=== PATIENT | male | born 1975 | race Caucasian/White ===

== ENCOUNTER 2023-04-25 20:46 | Emergency (ER) | payer OTHER, SELFPAY ==
[2023-04-25 20:46] VITALS: BMI 21.8
[2023-04-25 20:48] VITALS: BP 122/90
[2023-04-25 21:08] LABS: % Basophils 0.3 % (0-2); % Eosinophils 0.3 % (0-6); % Immature Granulocytes 0.4 % (0-0.5); % Lymphocytes 19.3 % (20.5-51.1); % Monocytes 10.8 % (1.7-9.3); % Neutrophils 68.9 % (42.2-75.2); Absolute Immature Granulocytes 0.1 10^3/uL (0-0.05); Absolute Lymphocytes 2.3 10^3/uL (1.2-3.4); Absolute Monocytes 1.3 10^3/uL (0.1-0.6); Absolute Neutrophils 8.1 10^3/uL (1.4-6.5); Hemoglobin 12.9 g/dL (13.0-18.0); Mean Corp Hgb Conc. 35.8 g/dL (33.0-37.0); Mean Corpuscular Hgb 30.9 pg (27.0-31.0); Mean Corpuscular Volume 86.3 fL (80.0-94.0); Nucleated Red Blood Cells % 0 % (-); Platelet Count 347 10^3/uL (130-400); Red Blood Cell Count 4.17 10^6/uL (4.70-6.10); Red Cell Dist. Width 12.1 % (11.5-14.5); White Blood Cell Count 11.8 10^3/uL (4.8-10.8)
[2023-04-25 21:22] LABS: Blood Urea Nitrogen 19 mg/dl (9-20); Calcium 9.8 mg/dl (8.4-10.2); Carbon Dioxide 29 mmol/L (22-30); Chloride 99 mmol/L (98-107); Glucose 105 mg/dl (70-99); Potassium 4.1 mmol/L (3.5-5.1); Sodium 135 mmol/L (135-145); eGFR > 60.00
[2023-04-25 21:23] LABS: Alcohol None Detected
--- NOTE | 2023-04-25 22:18 | ED.GENMED ---
History of Present Illness
General
Chief Complaint: Crisis Evaluation
Source: patient
Exam Limitations: none
Time Seen by Provider: 04/25/23 21:29
Nursing documentation reviewed up to this point in time: agreed with
Travel History
Have you had any contact with someone who has COVID-19?: No
Do you have any symptoms of coronavirus? Fever > 100 degrees, chills, cough, shortness of breath, sore throat, loss of taste or smell, muscle aches, or headache?: No
History of Present Illness
History of Present Illness:
Patient to ED for medical clearance for inpatient psychiatric care. Alert and cooperative. He states he has been feeling suicidal, has a plan. States he will inject something or hang himself. Denies taking anything prior to arrival here.
Past History
Past History
ED Past Medical History: HTN, Hypercholesterolemia and Psychiatric (Substance abuse, anxiety, depression)
ED Past Surgical History: Brain (hemorrhage 2022), Tonsilectomy and Other
Social History
Tobacco: Smoker
Alcohol: Occasional
Drug: IVDA
Personal: Single
Living: homeless
Employment: Not employed
Family History
Family History: Other (Noncontributory)
Review of Systems
Review of Systems
Allergies reviewed?: Yes
All Other Systems: ROS reviewed and negative except as documented in HPI and ROS
Constitutional: Reports no symptoms
EENT: Reports no symptoms
Respiratory: Reports no symptoms
Cardiac: Reports no symptoms
ABD/GI: Reports no symptoms
: Reports no symptoms
Musculoskeletal: Reports other (left wrist cast )
Skin: Reports no symptoms
Neurological: Reports no symptoms
Psychiatric: Reports depression and suicidal
Phy Exam
General Physical Exam
General Presentation: well appearing and no apparent distress
General age: appears stated age
General Skin: warm and dry
General Habitus: normal
General Mental: alert
General Hydration: appears well hydrated
Cardiovascular Exam
Cardiovascular Exam: regular rate/rhythm and no edema
Pulmonary Exam
Pulmonary Exam: lungs clear, no respiratory distress and chest non tender
Gastrointestinal Exam
Gastrointestinal Exam: normal bowel sounds, non tender, soft, no organomegaly, non distended and no cva tenderness
Neurological Exam
Neurological Exam: alert, oriented x3, CN II-XII intact, no motor deficits, no sensory deficits, speech normal and normal gait
Musculoskeletal Exam
Musculoskeletal Exam: neuro vasc intact and other (cast right wrist.)
Skin Exam
Skin Exam: normal color, warm/dry and no rash
Psychiatric Exam
Psychiatric Exam: depressed and suicidal
Course
Orders/Labs/Results
Orders:
Orders
04/25/23 21:01
Acetaminophen Urgent
Comment: ADD ON
Alcohol Urgent
Basic Metabolic Panel Urgent
Complete Blood Count/With Diff Urgent
Salicylate Urgent
Comment: ADD ON
04/25/23 21:42
Add On- LAB Urgent
Tests Added?: Tylenol, Salicylate
04/25/23 22:20
Fentanyl, Urine Urgent
Urine Drug Abuse Screen Urgent
Date Specimen was Collected: 04/25/23
Time Specimen was Collected: 20:51
Abnormal Lab Results
04/25/23 04/25/23
21:01 22:20
WBC 11.8 H 10^3/uL
(4.8-10.8)
RBC 4.17 L 10^6/uL
(4.70-6.10)
Hgb 12.9 L g/dL
(13.0-18.0)
Hct 36.0 L %
(39.0-52.0)
Abs Immat Gran (auto) 0.1 H 10^3/uL
(0-0.05)
Absolute Neuts (auto) 8.1 H 10^3/uL
(1.4-6.5)
Absolute Monos (auto) 1.3 H 10^3/uL
(0.1-0.6)
Lymphocytes % 19.3 L %
(20.5-51.1)
Monocytes % 10.8 H %
(1.7-9.3)
Glucose 105 H mg/dl
(70-99)
Ur Buprenorphine Positive H
(Negative)
Ur Tricyclics Screen Positive H
(Negative)
U Benzodiazepines Scrn Positive H
(Negative)
04/25/23 21:01
04/25/23 21:01
Vital Signs
Initial and Last Documented VS:
Initial Vital Signs
Temp Pulse Resp BP Pulse Ox
98.4 F 96 18 122/90 99
04/25/23 20:48 04/25/23 20:48 04/25/23 20:48 04/25/23 20:48 04/25/23 20:48
Last Documented Vital Signs
Temp Pulse Resp BP Pulse Ox
98.4 F 96 18 122/90 99
04/25/23 20:48 04/25/23 20:48 04/25/23 20:48 04/25/23 20:48 04/25/23 20:48
*Critical Care Note
Total Time (30-74mins, 75-104mins- exclusive of procedures): Not Applicable
Update Note
Update Note:
Alfred Levy is medically cleared for inpatient psychiatric admission
ED Attending Note
-
Portions of this chart may have been created with voice recognition software.� Occasional wrong word or��sound alike� substitutions may have occurred due to the inherent limitations of voice recognition software.
Discharge Plan
Departure
Patient Disposition: [facility]
Date of Disposition: 04/25/23
Time of Disposition: 22:25
Patient Status:: Crisis
Condition: Fair
Covid-19: Not Applicable
Discharge Problem:
Medical clearance for psychiatric admission
Prescriptions:
No Action
simvastatin 10 MG tablet
10 mg PO HS
clonazepam 1 MG tablet
1 mg PO BID
gabapentin [Neurontin] 800 MG tablet
800 mg PO TID
paroxetine HCl 20 MG tablet
40 mg PO HS
diphenhydramine HCl [Banophen] 25 MG capsule
25 mg PO DAILYPRN PRN (Reason: allergies)
ibuprofen 200 MG tablet
600 mg PO Q6HPRN PRN (Reason: mild pain fever)
lisinopril [Zestril] 30 MG tablet
30 mg PO HS
Seroquel:
300 mg PO HS
Suboxone 4 mg-1 mg Sl Film
1 film sublingual DAILY
Referrals:
UNKNOWN - PT NOT,INTERVIEWE [Family Provider] -
Interventions
Interventions:
*Risk Screen - Suicide Last Done: 04/25/23 23:03
*General Assessment Last Done: 04/25/23 20:48
*Neglect/Abuse Screening Last Done: 04/25/23 20:48
ED- Fall Risk Assessment Last Done: 04/25/23 23:03
*ED COVID-19 Vaccine History Last Done: 04/25/23 20:48
*Nursing Disposition Last Done: 04/25/23 23:03
ED-Psychological Assessment Last Done: 04/25/23 21:24
Discharge Date and Time
Discharge Date/Time: 04/25/23 23:09
[2023-04-25 22:38] LABS: Amphetamines Negative (Negative); Barbiturates Negative (Negative); Benzodiazepines Positive (Negative); Buprenorphine Positive (Negative); Cocaine Negative (Negative); Methadone Negative (Negative); Methamphetamines Negative (Negative); Opiates Negative (Negative)
[2023-04-25 22:39] LABS: Marijuana Negative (Negative); Phencyclidine Negative (Negative); Tricyclic Antidepressants Positive (Negative)
[2023-04-25 23:34] LABS: Fentanyl, Urine Negative (Negative)
[2023-04-26 00:04] LABS: Acetaminophen < 10 ug/ml (10-30); Salicylate < 1.0 mg/dl (2.0-20.0)
== END 2023-04-25 23:09 ==
LOC: EMR 20:46
PROVIDERS: EMERGENCY PHYSICIAN Emergency Medicine
DX: Z13.30 Encounter for screening examination for mental health and behavioral disorders, unspecified (principal); R45.851 Suicidal ideations; I10 Essential (primary) hypertension; E78.00 Pure hypercholesterolemia, unspecified; F19.10 Other psychoactive substance abuse, uncomplicated; F41.9 Anxiety disorder, unspecified; F32.A Depression, unspecified; F17.200 Nicotine dependence, unspecified, uncomplicated; Z86.73 Personal history of transient ischemic attack (TIA), and cerebral infarction without residual deficits
CPT/HCPCS: 99283; 80048; 80143; 80179; 80306; 80307; 82077; 85025

== ENCOUNTER 2024-04-03 16:10 | Emergency (ER) | payer SELFPAY ==
[2024-04-03 16:16] VITALS: BP 166/115
--- NOTE | 2024-04-03 16:30 | ED.GENMED ---
History of Present Illness
General
Chief Complaint: Crisis Evaluation
Source: patient and records
Exam Limitations: none
Time Seen by Provider: 04/03/24 16:25
Nursing documentation reviewed up to this point in time: agreed with
History of Present Illness
History of Present Illness:
48-year-old male with a past medical history of hypertension, hyperlipidemia, polysubstance use, anxiety and depression who presents to the ER for evaluation of suicidality, hallucinations and bizarre behavior. Patient is exhibiting very bizarre
behavior here. He clearly appears to be paranoid. He says 'I just need to talk to a friend and work something out.' He is very vague about this. He does admit that he has been suicidal. He vaguely references satellites and hearing things. I
was not able to contact his mother to obtain any collateral history. He denies any drug or alcohol use to me. He denies any other complaints. He says that he is supposed to be on medication including Seroquel, paroxetine, Klonopin and he says he
has been compliant without missed doses. He denies any physical complaints.
Past History
Past History
ED Past Medical History: HTN, Hypercholesterolemia and Psychiatric (Substance abuse, anxiety, depression)
ED Past Surgical History: Brain (hemorrhage 2022), Tonsilectomy and Other
Social History
Tobacco: Smoker
Alcohol: Occasional
Drug: IVDA
Personal: Single
Living: homeless
Employment: Not employed
Family History
Family History: Other (Noncontributory)
Review of Systems
Review of Systems
All Other Systems: ROS reviewed and negative except as documented in HPI and ROS
Respiratory: Denies trouble breathing
Cardiac: Denies chest pain
ABD/GI: Denies abdominal pain
: Denies flank pain
Musculoskeletal: Denies neck pain or back pain
Neurological: Denies headache
Psychiatric: Reports anxiety, suicidal and hallucinations
Phy Exam
Physical Exam
Physical Exam:
General: Awake, alert, pacing around the room appears guarded
Head: Normocephalic, atraumatic
Eyes: Conjunctiva normal
Throat: Airway intact, handling secretions
Neck: Trachea midline, supple without meningismus
Lungs: Breathing comfortably with no distress, no cyanosis or accessory muscle use
Heart: Regular rate
Neuro: No gross deficits, ambulatory with a steady gait
Extremities: Atraumatic
Psych: Anxious mood, bizarre affect
Scores
Heart Failure Risk
Heart Failure Risk Score: Not Applicable
Heart Score for Chest Pain Patients
STEMI patient?: Not applicable
Withdrawal Assessment of Alcohol
Withdrawal Assessment Completed?: Not applicable
Course
Orders/Labs/Results
Orders:
Orders
04/03/24 16:18
1:1 Observation - Suicide/ Violent Behavior As Directed
Crisis Consult Urgent
Reason for Consult: hearing voices and +SI
04/03/24 16:29
Lorazepam [Ativan] 1 mg PO NOW STA
04/03/24 16:30
Drug Screen, Urine [Urine Drug Abuse Screen] Urgent
Date Specimen was Collected: 04/03/24
Time Specimen was Collected: 16:33
Urinalysis Reflex To Culture Urgent
Date Specimen was Collected: 04/03/24
Time Specimen was Collected: 16:33
04/03/24 16:54
Alcohol Urgent
Complete Blood Count/With Diff Urgent
Comprehensive Metabolic Panel Urgent
04/03/24 17:49
Haloperidol Lactate [Haldol] 5 mg IM NOW STA
Lorazepam [Ativan] 2 mg IM NOW STA
04/03/24 17:52
Haloperidol [Haldol] 1 mg PO NOW STA
Lorazepam [Ativan] 0.5 mg PO NOW STA
Abnormal Lab Results
04/03/24
16:54
RBC 4.13 L 10^6/uL
(4.70-6.10)
Hgb 12.1 L g/dL
(13.0-18.0)
Hct 36.2 L %
(39.0-52.0)
Absolute Monos (auto) 0.7 H 10^3/uL
(0.1-0.6)
Monocytes % 9.9 H %
(1.7-9.3)
Glucose 109 H mg/dl
(70-99)
Calcium 10.3 H mg/dl
(8.4-10.2)
Total Protein 8.5 H g/dl
(6.3-8.2)
Albumin 5.6 H g/dl
(3.5-5.0)
04/03/24 16:54
04/03/24 16:54
Vital Signs
Initial and Last Documented VS:
Initial Vital Signs
Pulse Resp BP Pulse Ox
98 21 166/115 99
04/03/24 16:16 04/03/24 16:16 04/03/24 16:16 04/03/24 16:16
Last Documented Vital Signs
Pulse Resp BP Pulse Ox
98 21 166/115 99
04/03/24 16:16 04/03/24 16:16 04/03/24 16:16 04/03/24 16:16
MDM/Problems Addressed
Differential Diagnosis Includes:
Drug/alcohol intoxication, psychosis
MDM/Problems Addressed:
48-year-old male presents to the emergency room paranoid, anxious and referencing suicidality. Denies drug or alcohol use. Exam as above. Patient is willing to go for psychiatric treatment and is willing to take medication for anxiety. Will dose
with p.o. Ativan. Send screening labs, alcohol, UDS. Will monitor on continuous observation, case discussed with crisis for assessment. In my judgment he will need inpatient psychiatric treatment�at this point appears agreeable but should this
change in my judgment he appears to be unsafe for outpatient treatment and would require involuntary commitment.
Patient feeling more agitated requesting additional medications for anxiety and agitation. Will provide p.o. Haldol and Ativan. Continue to monitor. Crisis involved. Patient still agreeable to psychiatric treatment.
Chronic conditions affecting care:
Polysubstance use, anxiety, depression, OCD
Acute Exacerbation and/or Progression of Chronic Illness:
acutely hypertensive�no signs or symptoms of hypertensive emergency no indication for emergent antihypertensive treatment
Acute Exacerbation and/or Progression of Chronic Illness: HTN
*Pulse Oximetry
Patient hypoxic: no
*Critical Care Note
Total Time (30-74mins, 75-104mins- exclusive of procedures): Not Applicable
Data Reviewed
Source: patient
Patient Management
Discussion with other providers: Other (Discussed with crisis staff)
ED Attending Note
-
Portions of this chart may have been created with voice recognition software.� Occasional wrong word or��sound alike� substitutions may have occurred due to the inherent limitations of voice recognition software.
Discharge Plan
Departure
Patient Disposition: Psych Facility
Date of Disposition: 04/03/24
Time of Disposition: 17:17
Discharge Problem:
Psychosis
Prescriptions:
No Action
simvastatin 10 MG tablet
10 mg PO HS
clonazepam 1 MG tablet
1 mg PO BID
gabapentin [Neurontin] 800 MG tablet
800 mg PO TID
paroxetine HCl 20 MG tablet
40 mg PO HS
diphenhydramine HCl [Banophen] 25 MG capsule
25 mg PO DAILYPRN PRN (Reason: allergies)
ibuprofen 200 MG tablet
600 mg PO Q6HPRN PRN (Reason: mild pain fever)
lisinopril [Zestril] 30 MG tablet
30 mg PO HS
Seroquel:
300 mg PO HS
Suboxone 4 mg-1 mg Sl Film
1 film sublingual DAILY
Interventions
Interventions:
*Risk Screen - Suicide Last Done: 04/03/24 16:16
*General Assessment Last Done: 04/03/24 16:16
*Neglect/Abuse Screening Last Done: 04/03/24 16:16
*ED COVID-19 Vaccine History Last Done: 04/03/24 16:56
ED-Psychological Assessment Last Done: 04/03/24 16:56
Discharge Date and Time
Print Language: BELIZEAN
[2024-04-03] MEDS: ATIVAN 1 MG PO (16:35)
[2024-04-03 16:55] VITALS: BMI 22.7
[2024-04-03 17:08] LABS: % Basophils 0.4 % (0-2); % Eosinophils 0.7 % (0-6); % Immature Granulocytes 0.3 % (0-0.5); % Lymphocytes 22.3 % (20.5-51.1); % Monocytes 9.9 % (1.7-9.3); % Neutrophils 66.4 % (42.2-75.2); Absolute Eosinophils 0.1 10^3/uL (0-0.7); Absolute Lymphocytes 1.6 10^3/uL (1.2-3.4); Absolute Monocytes 0.7 10^3/uL (0.1-0.6); Absolute Neutrophils 4.9 10^3/uL (1.4-6.5); Hematocrit 36.2 % (39.0-52.0); Hemoglobin 12.1 g/dL (13.0-18.0); Mean Corp Hgb Conc. 33.4 g/dL (33.0-37.0); Mean Corpuscular Hgb 29.3 pg (27.0-31.0); Mean Corpuscular Volume 87.7 fL (80.0-94.0); Mean Platelet Volume 8.8 fL (7.4-10.4); Nucleated Red Blood Cells % 0 % (-); Platelet Count 366 10^3/uL (130-400); Red Blood Cell Count 4.13 10^6/uL (4.70-6.10); Red Cell Dist. Width 13.1 % (11.5-14.5); White Blood Cell Count 7.4 10^3/uL (4.8-10.8)
[2024-04-03 17:25] LABS: ALT (SGPT) 23 U/L (0-50); AST (SGOT) 25 U/L (17-59); Albumin 5.6 g/dl (3.5-5.0); Alcohol None Detected; Alkaline Phosphatase 71 U/L (38-126); Blood Urea Nitrogen 15 mg/dl (9-20); Calcium 10.3 mg/dl (8.4-10.2); Carbon Dioxide 25 mmol/L (22-30); Chloride 98 mmol/L (98-107); Estimated Creatinine Clearance 104 ml/min; Glucose 109 mg/dl (70-99); Potassium 4.4 mmol/L (3.5-5.1); Sodium 137 mmol/L (135-145); Total Bilirubin 0.5 mg/dl (0.2-1.3); Total Protein 8.5 g/dl (6.3-8.2); eGFR > 60.00
[2024-04-03] MEDS: ATIVAN 0.5 MG PO (17:56)
[2024-04-03] MEDS: HALDOL 1 MG PO (17:56)
--- NOTE | 2024-04-03 21:59 | ED.CRISIS ---
ED Crisis Note
ED Crisis Note
Subjective:
Patient agitated verbally physically
Objective:
Psychosis suicidal ideation
Assessment/Plan:
Chemically physically restrained for his and staff safety, will try to touch base with crisis to see disposition plan as he is under 302
[2024-04-03] MEDS: HALDOL 5 MG IM (22:03)
[2024-04-03] MEDS: ATIVAN 2 MG IM (22:04)
[2024-04-03 23:13] VITALS: BP 104/72
[2024-04-03] MEDS: SUBUTEX 8 MG SL (23:21)
[2024-04-04] MEDS: ATIVAN 2 MG IM (00:04)
[2024-04-04] MEDS: HALDOL 5 MG IM (00:04)
[2024-04-04 13:15] VITALS: BP 115/85
== END 2024-04-04 14:10 ==
LOC: EMR 16:10
PROVIDERS: Emergency Medicine; EMERGENCY PHYSICIAN Emergency Medicine
DX: R45.851 Suicidal ideations (principal); F29 Unspecified psychosis not due to a substance or known physiological condition; F22 Delusional disorders; R44.3 Hallucinations, unspecified; F41.9 Anxiety disorder, unspecified; F32.A Depression, unspecified; F42.9 Obsessive-compulsive disorder, unspecified; F19.90 Other psychoactive substance use, unspecified, uncomplicated; I10 Essential (primary) hypertension; E78.00 Pure hypercholesterolemia, unspecified; F17.200 Nicotine dependence, unspecified, uncomplicated; Z59.01 Sheltered homelessness
CPT/HCPCS: 99285; 96372 ×4; 80053; 82077; 85025

== ENCOUNTER 2024-06-25 23:49 | Emergency (ER) | payer SELFPAY ==
[2024-06-25 23:52] VITALS: BP 138/101
[2024-06-25 23:54] VITALS: BP 138/101
[2024-06-26] VITALS (13 sets, daily range): BP systolic 114–146; BP diastolic 44–111; BMI 19.9
--- NOTE | 2024-06-26 00:05 | ED.GENMED ---
History of Present Illness
General
Chief Complaint: Withdrawal Symptoms
Source: patient
Exam Limitations: none
Time Seen by Provider: 06/25/24 23:56
Nursing documentation reviewed up to this point in time: agreed with
History of Present Illness
History of Present Illness:
48-year-old male with a past medical history of hypertension, hyperlipidemia, polysubstance use, anxiety/depression who presents to the emergency department from snf via EMS; he presents today for evaluation of suicidality and 'I feel like I am
dehydrated.' EMS report was that their call was for 'meth withdrawal.' Patient says that he was at a snf where he has been staying at nighttime�he says that they called the police on him because 'I must of been talking in my sleep or something
but they thought I was acting weird.' Police apparently called EMS to bring to the hospital. Patient says that his primary issue is that 'I feel like I am dehydrated.' He says he has not been eating or drinking very well over the past week. He
says his lips are very dry. He says that he feels tired and he wants to take a nap but that he is hungry and wants some food first. When asked about meth use/drug use he says that he last used meth yesterday. He says that meth is the only drug
that he uses currently. He denies alcohol use. He denies any chest pain, abdominal pain, nausea, headache, back pain or any other acute complaints on review of systems. Regarding suicidality�patient reports that he has had suicidal ideation 'for
years.' He says that he often thinks of jumping in front of a truck or overdosing on drugs. Right now he denies being acutely suicidal, says that the feeling comes and goes frequently. He describes his mood as 'depressed.' He admits that he has
been noncompliant with his neuropsychiatric meds for at least a week and a half 'because they are not working.'
Past History
Past History
ED Past Medical History: HTN, Hypercholesterolemia and Psychiatric (Substance abuse, anxiety, depression)
ED Past Surgical History: Brain (hemorrhage 2022), Tonsilectomy and Other
Social History
Tobacco: Smoker
Alcohol: Occasional
Drug: IVDA
Personal: Single
Living: homeless
Employment: Not employed
Family History
Family History: Other (Noncontributory)
Review of Systems
Review of Systems
All Other Systems: ROS reviewed and negative except as documented in HPI and ROS
Constitutional: Reports fatigue; Denies fever
Respiratory: Denies trouble breathing
Cardiac: Denies chest pain
ABD/GI: Denies abdominal pain, nausea or vomiting
: Denies flank pain
Musculoskeletal: Denies neck pain or back pain
Neurological: Denies dizzy or headache
Psychiatric: Reports anxiety
Phy Exam
Physical Exam
Physical Exam:
General: Awake, alert, oriented x3; appears somewhat restless
Head: Normocephalic, atraumatic
Eyes: Conjunctiva normal, EOMI, pupils equal round and reactive to light bilaterally
Throat: Airway intact, somewhat dry mucous membranes
Neck: Trachea midline, supple without meningismus
Lungs: Clear to auscultation bilaterally, no wheezing, rales, rhonchi
Heart: Regular rate and rhythm, no murmurs, gallops, or rubs
Abd: Soft, non distended, nontender
Neuro: No gross deficits
Extremities: No edema in extremities, warm and well-perfused
Scores
Heart Failure Risk
Heart Failure Risk Score: Not Applicable
Heart Score for Chest Pain Patients
STEMI patient?: Not applicable
Withdrawal Assessment of Alcohol
Withdrawal Assessment Completed?: Not applicable
Course
Orders/Labs/Results
Orders:
Orders
06/25/24 23:55
Electrocardiogram (*1) Urgent
Reason for Study: Fatigue / Weakness
Other Reason for Exam: lithium withdrawal
Urine Drug Abuse Screen Urgent
Date Specimen was Collected: 06/25/24
Time Specimen was Collected: 23:56
06/25/24 23:56
EKG- Treatment ONCE
06/25/24 23:59
Complete Blood Count/With Diff Urgent
Comprehensive Metabolic Panel Urgent
[place] Urgent
06/26/24 00:05
0.9% Sodium Chloride 1000 ml [Nss] 1,000 ml IV BOLUS
Lorazepam [Ativan] 1 mg IV NOW STA
06/26/24 00:09
Crisis Consult Routine
Reason for Consult: suicidal ideation
06/26/24 00:21
Alcohol Urgent
CPK [Creatine Phosphokinase] Urgent
06/26/24 01:21
Fentanyl, Urine Urgent
06/26/24 01:26
CT Head W/o Iv Contrast Urgent
Comment:
Reason For Exam: change in mentation
06/26/24 01:45
0.9% Sodium Chloride 1000 ml [Nss] 1,000 ml IV BOLUS
Abnormal Lab Results
06/25/24 06/26/24 06/26/24
23:59 00:21 01:21
RBC 3.29 L 10^6/uL
(4.70-6.10)
Hgb 10.2 L g/dL
(13.0-18.0)
Hct 29.8 L %
(39.0-52.0)
Absolute Monos (auto) 1.1 H 10^3/uL
(0.1-0.6)
Monocytes % 15.0 H %
(1.7-9.3)
BUN 30 H mg/dl
(9-20)
Glucose 110 H mg/dl
(70-99)
Creatine Kinase 417 H U/L
(55-170)
Ur Amphetamines Screen Positive H
(Negative)
U Methamphetamines Scrn Positive H
(Negative)
[place] < 0.2 L mmol/L
(0.6-1.2)
06/25/24 23:59
06/25/24 23:59
Vital Signs
Initial and Last Documented VS:
Initial Vital Signs
Temp Pulse Resp BP Pulse Ox
36.4 C 83 19 138/101 100
06/25/24 23:52 06/25/24 23:52 06/25/24 23:52 06/25/24 23:52 06/25/24 23:52
Last Documented Vital Signs
Temp Pulse Resp BP Pulse Ox
36.4 C 69 15 124/98 96
06/25/24 23:52 06/26/24 05:30 06/26/24 05:30 06/26/24 05:00 06/26/24 05:30
MDM/Problems Addressed
Differential Diagnosis Includes:
Suicidal ideation, drug use/methamphetamine intoxication; dehydration, rhabdomyolysis, renal insufficiency
MDM/Problems Addressed:
48-year-old male presents to the ER�his chief complaints are feeling 'dehydrated' and having intermittent suicidal thoughts. He believes the police were called on him at the snf because 'they thought I was acting funny.' EMS report was that
there was a call for 'meth withdrawal.' Patient admits to methamphetamine use but says that he has not used for 24 hours. Vitals and exam as above. He does appear mildly dehydrated. Will check basic labs including a CBC and a CMP. Check CPK with
recent methamphetamine use. Check alcohol and UDS. Will provide IV fluids. He does appear restless and anxious we will treat with IV Ativan. Provide food. Discussed with crisis for assessment.
Patient sleeping comfortably on reassessment. Vital stable. Crisis to evaluate.
Labs reviewed: CBC shows stable anemia, CMP unremarkable. CPK marginally elevated; normal creatinine. Alcohol negative.
Patient difficult to arouse on reassessment even with straight catheterization for urine studies. Vitals remain normal and he is protecting his airway. Suspect likely related to drug use/Ativan, however with reported bizarre behavior prior to
arrival as well will check CT head in an abundance of caution.
CT head negative for any acute pathology. Vital signs stable. Patient resting in bed. He is arousable to touch at this point. He did wake up briefly to drink and eat. Will continue to monitor.
Patient now awake and alert, resting comfortably. Spoke with patient he says he wishes to speak to crisis team. Crisis at bedside to perform assessment.
Crisis performed their assessment�patient complaining of continued suicidal ideation. Requesting inpatient psychiatric treatment. Crisis to work towards placement. Consult to psychiatry. Monitor pending placement.
Chronic conditions affecting care:
Drug use, anxiety and depression
*Pulse Oximetry
Patient hypoxic: no
*EKG
Interpreted by ED Provider?: Yes
Comparison EKG: no changes
Heart Rate: 82
Rate: normal
Rhythm: sinus
Mitchells: normal axis
Interval: normal interval
QRS Pattern: normal QRS
Ischemia: no ischemia
*Critical Care Note
Total Time (30-74mins, 75-104mins- exclusive of procedures): Not Applicable
Data Reviewed
Review of Other/Old Records Reveals: Labs and Records
Source: patient
Patient Management
Discussion with other providers: Other (Discussed with crisis team)
ED Attending Note
-
Portions of this chart may have been created with voice recognition software.� Occasional wrong word or��sound alike� substitutions may have occurred due to the inherent limitations of voice recognition software.
Discharge Plan
Departure
Patient with high blood pressure during this ER visit?: Yes
Discharge Problem:
Dehydration, Methamphetamine use, Suicidal ideation
Instructions: Drug Misuse and Addiction (DC), Suicide prevention
Prescriptions:
No Action
simvastatin 10 MG tablet
10 mg PO HS
clonazepam 1 MG tablet
1 mg PO BID
gabapentin [Neurontin] 800 MG tablet
800 mg PO TID
paroxetine HCl 20 MG tablet
40 mg PO HS
diphenhydramine HCl [Banophen] 25 MG capsule
25 mg PO DAILYPRN PRN (Reason: allergies)
ibuprofen 200 MG tablet
600 mg PO Q6HPRN PRN (Reason: mild pain fever)
lisinopril [Zestril] 30 MG tablet
30 mg PO HS
Seroquel:
300 mg PO HS
Suboxone 4 mg-1 mg Sl Film
1 film sublingual DAILY
Referrals:
NONE,* [Family Provider] -
Activity Restrictions/Additional Instructions:
Thank you for visiting the Emergency Department at [facility].
1. Please schedule a follow up appointment as directed. Call first thing tomorrow morning to make an appointment.
2. If indicated, please take your medications as instructed and indicated on discharge paperwork.
3. If any of your symptoms do not improve, or persist, or become more severe within 6-12 hours, please return to the emergency department for further care.
4. Please return to the emergency department if you develop a headache, neck pain/stiffness, fever greater than 100.4F, chest pain, shortness of breath, persistent nausea, vomiting, slurred speech, difficulty walking, numbness/tingling, weakness,
signs of infection or any other symptoms that are worrisome to you.
Please call [phone] if you have any questions.
Interventions
Interventions:
*Risk Screen - Suicide Last Done: 06/26/24 00:06
*General Assessment Last Done: 06/26/24 00:06
*Neglect/Abuse Screening Last Done: 06/26/24 00:06
*ED- Fall Risk Assessment Last Done: 06/26/24 00:06
*ED COVID-19 Vaccine History Last Done: 06/26/24 00:06
ED- Neurological Assessment Last Done: 06/26/24 00:06
ED-Psychological Assessment Last Done: 06/26/24 00:06
Discharge Date and Time
Print Language: INDONESIAN
[2024-06-26 00:08] LABS: % Basophils 0.7 % (0-2); % Eosinophils 3.7 % (0-6); % Immature Granulocytes 0.1 % (0-0.5); % Lymphocytes 24.6 % (20.5-51.1); % Neutrophils 55.9 % (42.2-75.2); Absolute Basophils 0.1 10^3/uL (0-0.2); Absolute Eosinophils 0.3 10^3/uL (0-0.7); Absolute Lymphocytes 1.8 10^3/uL (1.2-3.4); Absolute Monocytes 1.1 10^3/uL (0.1-0.6); Absolute Neutrophils 4.1 10^3/uL (1.4-6.5); Hematocrit 29.8 % (39.0-52.0); Hemoglobin 10.2 g/dL (13.0-18.0); Mean Corp Hgb Conc. 34.2 g/dL (33.0-37.0); Mean Corpuscular Volume 90.6 fL (80.0-94.0); Mean Platelet Volume 8.9 fL (7.4-10.4); Nucleated Red Blood Cells % 0 % (-); Platelet Count 330 10^3/uL (130-400); Red Blood Cell Count 3.29 10^6/uL (4.70-6.10); Red Cell Dist. Width 13.2 % (11.5-14.5); White Blood Cell Count 7.3 10^3/uL (4.8-10.8)
[2024-06-26] MEDS: NSS 1000 IV ×2 (00:12→01:30)
[2024-06-26] MEDS: ATIVAN 1 MG IV (00:15)
[2024-06-26 00:22] LABS: ALT (SGPT) 17 U/L (0-50); AST (SGOT) 35 U/L (17-59); Albumin 4.1 g/dl (3.5-5.0); Alkaline Phosphatase 67 U/L (38-126); Blood Urea Nitrogen 30 mg/dl (9-20); Calcium 9.5 mg/dl (8.4-10.2); Carbon Dioxide 26 mmol/L (22-30); Chloride 107 mmol/L (98-107); Estimated Creatinine Clearance 91 ml/min; Glucose 110 mg/dl (70-99); Lithium < 0.2 mmol/L (0.6-1.2); Potassium 3.7 mmol/L (3.5-5.1); Sodium 141 mmol/L (135-145); Total Bilirubin 0.5 mg/dl (0.2-1.3); Total Protein 6.4 g/dl (6.3-8.2); eGFR > 60.00
[2024-06-26 00:49] LABS: Creatine Phosphokinase 417 U/L (55-170)
[2024-06-26 00:50] LABS: Alcohol None Detected
[2024-06-26 01:45] LABS: Amphetamines Positive (Negative); Barbiturates Negative (Negative); Benzodiazepines Negative (Negative); Buprenorphine Negative (Negative); Cocaine Negative (Negative); Marijuana Negative (Negative); Methadone Negative (Negative); Methamphetamines Positive (Negative); Opiates Negative (Negative); Phencyclidine Negative (Negative); Tricyclic Antidepressants Negative (Negative)
[2024-06-26 02:07] LABS: Fentanyl, Urine Negative (Negative)
[2024-06-26] MEDS: MOTRIN 600 MG PO (09:19)
--- NOTE | 2024-06-26 11:26 | W.PN.UPDATE ---
Update Note
Progress Note Update
patient was accepted at [facility] and will be transported there later today. psychiatry consult canceled.
== END 2024-06-26 15:03 ==
LOC: EMR 23:49
PROVIDERS: EMERGENCY PHYSICIAN Emergency Medicine; OTHER PHYSICIAN Psychiatry & Neurology Psychiatry
DX: F15.90 Other stimulant use, unspecified, uncomplicated (principal); R45.851 Suicidal ideations; E86.0 Dehydration; F41.9 Anxiety disorder, unspecified; F32.A Depression, unspecified; I10 Essential (primary) hypertension; E78.00 Pure hypercholesterolemia, unspecified; Z59.01 Sheltered homelessness; F17.200 Nicotine dependence, unspecified, uncomplicated
CPT/HCPCS: 99285; 96374; 96361 ×2; 51701; 70450; 80053; 80178; 80306; 80307; 82077; 82550; 85025; 93005

== ENCOUNTER 2024-11-08 00:54 | Emergency (ER) | payer SELFPAY ==
[2024-11-08 01:02] VITALS: BP 132/88
[2024-11-08 02:26] LABS: Hematocrit 29.7 % (39.0-52.0); Hemoglobin 10.3 g/dL (13.0-18.0); Mean Corp Hgb Conc. 34.7 g/dL (33.0-37.0); Mean Corpuscular Volume 88.9 fL (80.0-94.0); Platelet Count 229 10^3/uL (130-400); Red Cell Dist. Width 12.5 % (11.5-14.5)
--- NOTE | 2024-11-08 02:26 | ED.GENMED ---
History of Present Illness
General
Chief Complaint: Suicidal Ideation
Source: patient
Exam Limitations: none
Time Seen by Provider: 11/08/24 01:10
Nursing documentation reviewed up to this point in time: agreed with
History of Present Illness
History of Present Illness:
Patient with history of anxiety, depression, and substance abuse, presents to ED requesting assistance secondary to suicidal thoughts. Patient states that he has thoughts of wanting to hurt himself by overdosing on fentanyl. Denies homicidal
ideation. Denies recent illness. Denies recent change in medications or diet. Patient otherwise has no complaints.
Past History
Past History
ED Past Medical History: HTN, Hypercholesterolemia and Psychiatric (Substance abuse, anxiety, depression)
ED Past Surgical History: Brain (hemorrhage 2022), Tonsilectomy and Other
Social History
Tobacco: Smoker
Alcohol: Occasional
Drug: IVDA
Personal: Single
Living: homeless
Employment: Not employed
Family History
Family History: Other (Noncontributory)
Review of Systems
Review of Systems
Allergies reviewed?: Yes
All Other Systems: ROS reviewed and negative except as documented in HPI and ROS
Constitutional: Reports no symptoms
Respiratory: Reports no symptoms
Cardiac: Reports no symptoms
ABD/GI: Reports no symptoms
Musculoskeletal: Reports no symptoms
Skin: Reports no symptoms
Neurological: Reports no symptoms
Psychiatric: Reports anxiety and suicidal
Phy Exam
Physical Exam
Physical Exam:
Physical Exam
General: no apparent distress, not acutely ill. afebrile
Head: nc/at. eomi
Neck: supple. no meningeal signs.
Heart: s1/s2 regular rate and rhythm
Lungs: no acute respiratory distress. clear bilaterally
Abdomen: normal bowel sounds. not tender.
Neuro: alert and oriented x 3. no focal neurological deficits
Skin: no rash
Psychiatric: well kept. interactive and cooperative
Extremities: no edema. no calf tenderness.
Course
Orders/Labs/Results
Orders:
Orders
11/08/24 01:05
1:1 Observation - Suicide/ Violent Behavior As Directed
11/08/24 01:06
Crisis Consult Urgent
Reason for Consult: suicidal ideations
11/08/24 02:16
Acetaminophen Urgent
Alcohol Urgent
Complete Blood Count/No Diff Urgent
Comprehensive Metabolic Panel Urgent
Salicylate Urgent
11/08/24 05:46
Fentanyl, Urine Urgent
Urine Drug Abuse Screen Urgent
Date Specimen was Collected: 11/08/24
Time Specimen was Collected: 05:34
Abnormal Lab Results
11/08/24 11/08/24
02:16 05:46
RBC 3.34 L 10^6/uL
(4.70-6.10)
Hgb 10.3 L g/dL
(13.0-18.0)
Hct 29.7 L %
(39.0-52.0)
BUN 21 H mg/dl
(9-20)
Creatinine 0.6 L mg/dL
(0.7-1.3)
Glucose 110 H mg/dl
(70-99)
Salicylates < 1.0 L mg/dl
(2.0-20.0)
Ur Buprenorphine Positive H
(Negative)
Acetaminophen < 10 L ug/ml
(10-30)
Ur Tricyclics Screen Positive H
(Negative)
Ur Amphetamines Screen Positive H
(Negative)
U Methamphetamines Scrn Positive H
(Negative)
U Benzodiazepines Scrn Positive H
(Negative)
U Marijuana (THC) Screen Positive H
(Negative)
11/08/24 02:16
11/08/24 02:16
Vital Signs
Initial and Last Documented VS:
Initial Vital Signs
Temp Pulse Resp BP Pulse Ox
97.4 F 112 24 132/88 93
11/08/24 01:02 11/08/24 01:02 11/08/24 01:02 11/08/24 01:02 11/08/24 01:02
Last Documented Vital Signs
Temp Pulse Resp BP Pulse Ox
97.4 F 82 17 106/69 98
11/08/24 01:02 11/08/24 04:29 11/08/24 04:29 11/08/24 04:29 11/08/24 04:29
MDM/Problems Addressed
MDM/Problems Addressed:
Patient evaluated in ED by [facility] binding bench worker. Patient is medically cleared. Patient will be transferred to inpatient psychiatric facility for further evaluation and treatment.
*Pulse Oximetry
SaO2: 93
Oxygen Mode of Delivery: Room air
Patient hypoxic: no
*Critical Care Note
Total Time (30-74mins, 75-104mins- exclusive of procedures): Not Applicable
ED Attending Note
-
Portions of this chart may have been created with voice recognition software.� Occasional wrong word or��sound alike� substitutions may have occurred due to the inherent limitations of voice recognition software.
Discharge Plan
Departure
Patient Disposition: Psych Facility
Date of Disposition: 11/08/24
Time of Disposition: 02:29
Discharge Problem:
Suicidal ideation
Prescriptions:
No Action
simvastatin 10 MG tablet
10 mg PO HS
clonazepam 1 MG tablet
1 mg PO BID
gabapentin [Neurontin] 800 MG tablet
800 mg PO TID
paroxetine HCl 20 MG tablet
40 mg PO HS
diphenhydramine HCl [Banophen] 25 MG capsule
25 mg PO DAILYPRN PRN (Reason: allergies)
ibuprofen 200 MG tablet
600 mg PO Q6HPRN PRN (Reason: mild pain fever)
lisinopril [Zestril] 30 MG tablet
30 mg PO HS
Seroquel:
300 mg PO HS
Suboxone 4 mg-1 mg Sl Film
1 film sublingual DAILY
Referrals:
UNKNOWN - PT DOES,NOT KNOW [Family Provider]
Interventions
Interventions:
*Risk Screen - Suicide Last Done: 11/08/24 01:02
*General Assessment Last Done: 11/08/24 01:02
*Neglect/Abuse Screening Last Done: 11/08/24 01:15
*ED- Fall Risk Assessment Last Done: 11/08/24 01:15
*ED COVID-19 Vaccine History Last Done: 11/08/24 01:15
*Nursing Disposition Last Done: 11/08/24 10:55
ED-Psychological Assessment Last Done: 11/08/24 01:15
Discharge Date and Time
Discharge Date/Time: 11/08/24 10:55
Print Language: GERMAN
[2024-11-08 02:49] LABS: ALT (SGPT) 18 U/L (0-50); AST (SGOT) 41 U/L (17-59); Acetaminophen < 10 ug/ml (10-30); Albumin 4.3 g/dl (3.5-5.0); Alkaline Phosphatase 48 U/L (38-126); Blood Urea Nitrogen 21 mg/dl (9-20); Calcium 8.8 mg/dl (8.4-10.2); Carbon Dioxide 28 mmol/L (22-30); Chloride 102 mmol/L (98-107); Glucose 110 mg/dl (70-99); Potassium 3.5 mmol/L (3.5-5.1); Sodium 135 mmol/L (135-145); Total Protein 6.3 g/dl (6.3-8.2); eGFR > 60.00
[2024-11-08 03:28] LABS: Salicylate < 1.0 mg/dl (2.0-20.0)
[2024-11-08 04:29] VITALS: BP 106/69
--- NOTE | 2024-11-08 10:50 | EDRN ---
This RN assumed care of this pt at 10:50 and crisis in crisis area and pt leaving at this time.
== END 2024-11-08 10:55 ==
LOC: EMR 00:54
PROVIDERS: EMERGENCY PHYSICIAN Emergency Medicine
DX: R45.851 Suicidal ideations (principal); F32.A Depression, unspecified; F41.9 Anxiety disorder, unspecified; E78.00 Pure hypercholesterolemia, unspecified; I10 Essential (primary) hypertension; F17.200 Nicotine dependence, unspecified, uncomplicated; Z86.73 Personal history of transient ischemic attack (TIA), and cerebral infarction without residual deficits
CPT/HCPCS: 99285; 80053; 80143; 80179; 80306; 80307; 82077; 85027

== ENCOUNTER 2024-12-14 21:36 | Emergency (ER) | payer OTHER, SELFPAY ==
[2024-12-14 22:00] VITALS: BP 108/78
--- NOTE | 2024-12-14 23:04 | ED.GENMED ---
History of Present Illness
General
Chief Complaint: Psychiatric Problem
Source: patient, police and previous hospital records (ED visit for very similar complaint 1 month ago.)
Exam Limitations: none
Time Seen by Provider: 12/14/24 22:32
Nursing documentation reviewed up to this point in time: agreed with
History of Present Illness
History of Present Illness:
The patient is a 49-year-old male with a history of anxiety, depression, hypertension, and poly-substance abuse, maintained on Suboxone. He was brought in by police after they received a call for a wellness check, finding him in a parking lot with
admitted suicidal thoughts and a plan to inject himself with fentanyl. The patient reported his anxiety has been worsening, exacerbated by increased social pressures. He admitted to hearing voices, generally derogatory in nature telling him that he
is 'a loser' and telling him to kill himself, specifically by injecting himself with fentanyl.
The patient had a similar presentation and complaint during an emergency department visit on November 08 of this year, where he also expressed thoughts of overdosing on fentanyl. During that visit, he was transferred to an inpatient psychiatric
facility.
He follows regularly with a psychiatrist/counselor through his recovery center.
Chronically maintained on Suboxone 8/2 3 times daily.
His psychiatric medications have been adjusted. He takes Seroquel 200 mg in the a.m., 200 mg in the afternoon, 400 mg in the evening.
He was also restarted on Paxil within the past month, 30 mg in the AM.
Other than this it is unclear if he is on any other psychiatric medications.
He admits to increased alcohol consumption over the past several days to week or 2 consuming several beers as well as vodka on a daily basis. Alcohol consumption is a new issue. He states he used to drink heavily in his 20s but had been sober
until more recently.
He admits to 'smoking a joint' with a friend a few days ago. Other than this he denies regular marijuana use. He also denies other substance abuse.
Prior records reviewed.
Urine drug screen November 08 was positive for methamphetamine, amphetamine, buprenorphine, tricyclic, benzodiazepine.
Past History
Past History
ED Past Medical History: HTN, Hypercholesterolemia and Psychiatric (Substance abuse, anxiety, depression, psychosis)
ED Past Surgical History: Brain (hemorrhage 2022), Tonsilectomy and Other
Social History
Tobacco: Vaping (Vapes nicotine)
Alcohol: Occasional
Drug: IVDA
Personal: Single
Living: with roommate
Employment: Not employed
Family History
Family History: Other (Noncontributory)
Phy Exam
Physical Exam
Physical Exam:
GENERAL: 49-year-old male appears his stated age, thin build, well-groomed, he is awake and alert, moderately anxious, fidgety/restless but remains cooperative and easily communicative. Somewhat scattered thought processes. Admits to auditory
hallucinations, voices telling him to kill himself by injecting with fentanyl.
EYE: pupils equal and reactive. anicteric
NECK: Supple, nontender, no meningismus, no significant adenopathy.
ENT: posterior pharynx is clear, oral mucosa is moist. TM clear b/l, nares patent.
CARDIAC: Regular rate and rhythm. no murmur.
LUNGS: Clear breath sounds bilaterally, no acute respiratory distress, no wheezes/rales/rhonchi
ABDOMEN: Soft, nondistended, without focal tenderness, normoactive BS.
NEUROLOGICAL: Alert and oriented x3, no focal neuro deficits. Gait is gomez and steady.
SKIN: Warm and dry, normal color, skin intact. No rash.
MUSCULOSKELETAL: No C/C/E. peripheral pulses are full and equal b/l. No palpable tenderness.
PSYCH: Anxious, somewhat restless/fidgety. Admits to suicidal ideations. Admits to ongoing/chronic auditory hallucinations. Scattered and somewhat tangential thought processes. Marked difficulty maintaining focus during conversation. Remains
cooperative.
Course
Orders/Labs/Results
Orders:
Orders
12/14/24 21:56
Crisis Consult Routine
Reason for Consult: od
12/14/24 22:55
Quetiapine Fumarate [Seroquel] 400 mg PO NOW STA
12/14/24 22:57
Urine Drug Abuse Screen Urgent
Buprenorphine [Subutex] 8 mg SL NOW ONE
12/14/24 23:04
Ibuprofen [Motrin] 600 mg PO NOW STA
12/14/24 23:14
Acetaminophen Urgent
Alcohol Urgent
Complete Blood Count/With Diff Urgent
Comprehensive Metabolic Panel Urgent
Salicylate Urgent
Abnormal Lab Results
12/14/24
23:14
RBC 3.48 L 10^6/uL
(4.70-6.10)
Hgb 10.4 L g/dL
(13.0-18.0)
Hct 30.1 L %
(39.0-52.0)
Absolute Neuts (auto) 6.6 H 10^3/uL
(1.4-6.5)
Absolute Monos (auto) 1.3 H 10^3/uL
(0.1-0.6)
Lymphocytes % 15.7 L %
(20.5-51.1)
Monocytes % 13.7 H %
(1.7-9.3)
BUN 34 H mg/dl
(9-20)
Glucose 150 H mg/dl
(70-99)
Albumin 5.1 H g/dl
(3.5-5.0)
Salicylates < 1.0 L mg/dl
(2.0-20.0)
Acetaminophen < 10 L ug/ml
(10-30)
12/14/24 23:14
12/14/24 23:14
Vital Signs
Initial and Last Documented VS:
Initial Vital Signs
Pulse Resp BP Pulse Ox
96 20 108/78 97
12/14/24 22:00 12/14/24 22:00 12/14/24 22:00 12/14/24 22:00
Last Documented Vital Signs
Pulse Resp BP Pulse Ox
96 20 108/78 97
12/14/24 22:00 12/14/24 22:00 12/14/24 22:00 12/14/24 23:06
MDM/Problems Addressed
Differential Diagnosis Includes:
The Differential Diagnosis includes, in no particular order and is not limited to:
1. Major Depressive Disorder with suicidal ideation
2. Substance-Induced Mood Disorder
3. Schizoaffective Disorder
4. Substance Use Disorder
5. Bipolar Disorder
6. Post-Traumatic Stress Disorder
7. Generalized Anxiety Disorder
8. Psychotic Disorder
9. Adjustment Disorder
10. Stress-related disorder
MDM/Problems Addressed:
Acute on chronic anxiety with suicidal thoughts, plan to inject himself with fentanyl.
Acute on chronic auditory hallucinations.
Substance abuse history, chronically maintained on Suboxone.
More recently has been consuming alcohol on a daily basis. Although anxious and somewhat restless he is without tachycardia, no tremor, no diaphoresis, no other signs of alcohol withdrawal.
He has consumed a box lunch, a large cup of water and requesting additional water as well as apple juice.
Prior records reveal polysubstance abuse�UDS 1 month ago was positive for methamphetamine, benzodiazepine. Concern for ongoing polysubstance use/abuse.
Will check labs including alcohol, salicylate, acetaminophen. Urine drug screen.
Will give his usual evening dose of Seroquel and Suboxone now.
Crisis has been consulted.
Patient remains cooperative and agreeable to psychiatric treatment, agreeable to inpatient psychiatric treatment.
Will continue one-to-one observation.
Will continue to observe for signs of alcohol withdrawal.
Chronic conditions affecting care: Neurological disorder (Prior history of traumatic head injury 2022.) and Psychiatric illness
Acute Exacerbation and/or Progression of Chronic Illness: Psychiatric illness
*Pulse Oximetry
SaO2: 97
Oxygen Mode of Delivery: Room air
Patient hypoxic: no
*Critical Care Note
Total Time (30-74mins, 75-104mins- exclusive of procedures): Not Applicable
Patient Management
Social determinants of health affecting care: Living situation (Resides with a roommate. ), Substance abuse and Poor social support (Resides with a roommate. The patient experiences social pressure which exacerbates his anxiety. He consumes
alcohol daily and was recently surrounded by individuals using substances, which might have influenced his current mental state.)
Update Note
Update Note:
Patient remains agreeable to inpatient psychiatric treatment.
Labs thus far unremarkable. Salicylate, acetaminophen and EtOH are all negative. UDS is still pending.
He continues to have no evidence of alcohol withdrawal.
He has been evaluated by [facility]. Arranging for inpatient psychiatric hospital acceptance and transfer.
ED Attending Note
-
Portions of this chart may have been created with voice recognition software.� Occasional wrong word or��sound alike� substitutions may have occurred due to the inherent limitations of voice recognition software.
Discharge Plan
Departure
Patient Disposition: Psych Facility
Date of Disposition: 12/15/24
Time of Disposition: 00:50
Patient Status:: 201
Discharge Problem:
Suicidal ideations, Auditory hallucination, Hx of substance abuse
Prescriptions:
No Action
simvastatin 10 MG tablet
10 mg PO HS
clonazepam 1 MG tablet
1 mg PO BID
gabapentin [Neurontin] 800 MG tablet
800 mg PO TID
paroxetine HCl 20 MG tablet
40 mg PO HS
diphenhydramine HCl [Banophen] 25 MG capsule
25 mg PO DAILYPRN PRN (Reason: allergies)
ibuprofen 200 MG tablet
600 mg PO Q6HPRN PRN (Reason: mild pain fever)
lisinopril [Zestril] 30 MG tablet
30 mg PO HS
Seroquel:
300 mg PO HS
Suboxone 4 mg-1 mg Sl Film
1 film sublingual DAILY
Referrals:
UNKNOWN - PT DOES,NOT KNOW [Family Provider]
Interventions
Interventions:
*Risk Screen - Suicide Last Done: 12/14/24 21:49
*General Assessment Last Done: 12/14/24 21:49
*Neglect/Abuse Screening Last Done: 12/14/24 21:49
ED-Psychological Assessment Last Done: 12/14/24 22:01
Discharge Date and Time
Print Language: LAO
[2024-12-14] MEDS: SUBUTEX 8 MG SL (23:16)
[2024-12-14] MEDS: SEROQUEL 400 MG PO (23:16)
[2024-12-14] MEDS: MOTRIN 600 MG PO (23:16)
[2024-12-14 23:47] LABS: Hematocrit 30.1 % (39.0-52.0); Hemoglobin 10.4 g/dL (13.0-18.0); Mean Corp Hgb Conc. 34.6 g/dL (33.0-37.0); Mean Corpuscular Volume 86.5 fL (80.0-94.0); Nucleated Red Blood Cells % 0 % (-); Red Cell Dist. Width 12.4 % (11.5-14.5)
[2024-12-14 23:52] LABS: ALT (SGPT) 30 U/L (0-50); AST (SGOT) 49 U/L (17-59); Acetaminophen < 10 ug/ml (10-30); Albumin 5.1 g/dl (3.5-5.0); Alkaline Phosphatase 72 U/L (38-126); Blood Urea Nitrogen 34 mg/dl (9-20); Calcium 9.9 mg/dl (8.4-10.2); Carbon Dioxide 24 mmol/L (22-30); Chloride 102 mmol/L (98-107); Glucose 150 mg/dl (70-99); Potassium 4.2 mmol/L (3.5-5.1); Salicylate < 1.0 mg/dl (2.0-20.0); Sodium 136 mmol/L (135-145); Total Protein 7.6 g/dl (6.3-8.2); eGFR > 60.00
[2024-12-15 07:46] VITALS: BP 98/68
--- NOTE | 2024-12-15 11:00 | EDRN ---
Assumed care of pt at this time. Called crisis and no plan as need a urine test results.
--- NOTE | 2024-12-15 11:50 | EDRN ---
Urine spec sent to lab.
[2024-12-15 13:00] VITALS: BP 117/86
--- NOTE | 2024-12-15 13:03 | EDRN ---
Crisis called and informed urine UDS is resulted.
--- NOTE | 2024-12-15 13:34 | ED.CRISIS ---
ED Crisis Note
ED Crisis Note
Subjective:
No new issues
Objective:
Salicylates and acetaminophen undetected, UDS is positive for buprenorphine, tricyclic's, amphetamines, methamphetamines. Fentanyl negative. Vital signs as of 1 PM today are unremarkable.
Assessment/Plan:
I spoke to crisis. The patient is accepted at [facility] however we are currently waiting on insurance approval before transfer.
--- NOTE | 2024-12-15 14:03 | EDRN ---
Pt is accepted at [facility] pending insurance acceptance. Pt looking a bit like he was withdrawing so this RN asked about last subutex, pt stated yesterday though actually had a dose last night. Dr. Martinez informed and ordered a dose for now.
[facility] is working on a med rec for pt as well.
[2024-12-15] MEDS: SUBUTEX 8 MG SL (14:11)
--- NOTE | 2024-12-15 14:17 | EDRN ---
Dr. Sebastian TT'd about pt's R wrist pain and wanting some motrin for it.
[2024-12-15] MEDS: MOTRIN 600 MG PO (15:24)
== END 2024-12-15 16:16 ==
LOC: EMR 21:36
PROVIDERS: EMERGENCY PHYSICIAN Emergency Medicine
DX: R45.851 Suicidal ideations (principal); F41.9 Anxiety disorder, unspecified; R44.0 Auditory hallucinations; F19.980 Other psychoactive substance use, unspecified with psychoactive substance-induced anxiety disorder; F10.980 Alcohol use, unspecified with alcohol-induced anxiety disorder; M25.531 Pain in right wrist; I10 Essential (primary) hypertension; E78.00 Pure hypercholesterolemia, unspecified; F32.A Depression, unspecified; F17.290 Nicotine dependence, other tobacco product, uncomplicated; Z60.8 Other problems related to social environment; Z87.820 Personal history of traumatic brain injury; Z79.899 Other long term (current) drug therapy
CPT/HCPCS: 99285; 80053; 80143; 80179; 80306; 80307; 82077; 85025